=== PATIENT | female | born 1980 | race Caucasian/White ===

== ENCOUNTER 2017-05-31 08:03 | Emergency (ER) | payer BC ==
[2017-05-31 08:35] VITALS: BP 125/93
--- NOTE | 2017-05-31 09:01 | UC ---
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 " wanted to make sure it's not strep. 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 no fevers. + PND, has chronic sinus issues bc of very narrow passageways. Has pollen & ragweed allergies but not on anti- histamines. has been mowing lawn. has had good relief with flonase inpast. used saline rinse once and had hard time with it but willing to try again. ST is worst in AM upon awakening. denies . - History of Current Complaint Chief Complaint: UCRespiratory Stated Complaint: SORE THROAT Time Seen by Provider: 05/31/17 08:10 Hx Last Menstrual Period: 04/30/17 - Allergies/Home Medications Allergies/Adverse Reactions: Allergies Allergy/AdvReac Type Severity Reaction Status Date / Time Penicillins Allergy Anaphylatic Verified 05/31/17 08:10 Shock Home Medications: Home Medications NK [No Home Medications Reported] 05/31/17 [History Confirmed 05/31/17] PMH/Surg Hx/FS Hx/Imm Hx Previously Healthy: Yes - Surgical History Surgical History: Yes Surgery Procedure, Year, and Place: endometrial x 2. lasik - Family History Known Family History: Positive: Diabetes - uncle - Social History Alcohol Use: None Substance Use Type: None Smoking Status (MU): Never Smoked Tobacco Review of Systems Constitutional: Negative Skin: Negative Eyes: Negative ENT: Nasal Discharge, Sinus Congestion, Sinus Pain/Tenderness - chronic, mild. not significant at this time. Respiratory: Negative Cardiovascular: Negative Gastrointestinal: Negative Genitourinary: Negative Motor: Negative Neurovascular: Negative Musculoskeletal: Negative Neurological: Negative Psychological: Negative All Other Systems Reviewed And Are Negative: Yes Physical Exam Triage Information Reviewed: Yes Appearance: Well-Appearing, No Pain Distress, Well-Nourished - very pleasant Vital Signs: Initial Vital Signs Temp 98.4 F 05/31/17 08:12 Pulse 74 05/31/17 08:12 Resp 16 05/31/17 08:12 BP 125/93 05/31/17 08:12 Pulse Ox 100 05/31/17 08:12 Vital Signs Reviewed: Yes Eye Exam: Normal ENT Exam: Normal ENT: Positive: Normal ENT inspection, Pharyngeal erythema - mild, + PND, no exudate, no abscess., Nasal congestion, TMs normal, Other: - mild b/l maxillary tenderness. Negative: Tonsillar swelling, Tonsillar exudate, Muffled/hoarse voice Dental Exam: Normal Neck exam: Normal Neck: Positive: Supple, Nontender, No Lymphadenopathy Respiratory Exam: Normal Respiratory: Positive: Lungs clear, Normal breath sounds, No respiratory distress, No accessory muscle use. Negative: Crackles, Rhonchi, Stridor, Wheezing Abdominal Exam: Normal Abdomen Description: Positive: Nontender, No Organomegaly, Soft Musculoskeletal Exam: Normal Neurological Exam: Normal Psychological Exam: Normal Skin Exam: Normal Throat Pain/Nasal Course/Dx - Course Course Of Treatment: rapid strep neg. no known mono exposure. She questions if she shhould have a traditional throat cx done and I reassured her that the rapid test we use has very low chance of false negative and not indicated. In addition, she does not have compelling reason for streps, ie - no exudate, no LAD, no fever and she has PND/congestion. I did offer TC if she really wanted to and she declines. If sx persist, I would consider mono testing and she is agreeable. - Differential Dx/Diagnosis Differential Diagnosis/HQI/PQRI: Laryngitis, Mononucleosis, Peritonsillar Abscess, Pharyngitis, Sinusitis, Tonsillitis, URI Provider Diagnoses: Post nasal drip, allergies, ST Discharge - Discharge Plan Condition: Stable Disposition: HOME Patient Education Materials: Allergic Rhinitis (ED) Referrals: [facility] [Provider Group] Non Staff,Doctor [Primary Care Provider] - Additional Instructions: We discussed daily use of saline rinses followed by flonase nasal spray. OTC anti-histamine daily would help as well. rapid strep cx was negative. Please call a PCP to f/u with. A phone number is attached above.
== END 2017-05-31 09:11 | disposition home or self-care (01) ==
LOC: UCCORT 08:03
DX: J02.9 Acute pharyngitis, unspecified (principal); R09.82 Postnasal drip; J30.2 Other seasonal allergic rhinitis
CPT/HCPCS: 87651; 99211; G0463